=== PATIENT | female | born 1995 | race Hispanic/Latino ===

== ENCOUNTER 2024-06-02 05:39 | Emergency (ER) | payer SELFPAY ==
[2024-06-02 05:44] VITALS: BP 120/77
--- NOTE | 2024-06-02 06:30 | ED.GENMED ---
History of Present Illness
General
Chief Complaint: Weakness
Source: patient
Exam Limitations: none
Time Seen by Provider: 06/02/24 06:22
History of Present Illness
History of Present Illness:
See MDM
Past History
Past History
ED Past Medical History: None
ED Past Surgical History: None
Social History
Tobacco: Non-smoker
Alcohol: None
Phy Exam
Physical Exam
Physical Exam:
See MDM
Course
Orders/Labs/Results
Orders:
Orders
06/02/24 06:28
Electrocardiogram (*1) Urgent
Reason for Study: Fatigue / Weakness
EKG- Treatment ONCE
0.9% Sodium Chloride 1000 ml [Nss] 1,000 ml IV BOLUS
06/02/24 06:29
Test Result ONCE
06/02/24 06:37
Complete Blood Count/With Diff Urgent
Comprehensive Metabolic Panel Urgent
HCG, Serum Qualitative Screen Urgent
Abnormal Lab Results
06/02/24
06:37
Hct 36.9 L %
(37.0-47.0)
Abs Immat Gran (auto) 0.1 H 10^3/uL
(0-0.05)
Immature Gran % 0.6 H %
(0-0.5)
Total Bilirubin 1.6 H mg/dl
(0.2-1.3)
06/02/24 06:37
06/02/24 06:37
Vital Signs
Initial and Last Documented VS:
Initial Vital Signs
Temp Pulse Resp BP Pulse Ox
98.8 F 75 16 120/77 98
06/02/24 05:44 06/02/24 05:44 06/02/24 05:44 06/02/24 05:44 06/02/24 05:44
Last Documented Vital Signs
Temp Pulse Resp BP Pulse Ox
98.8 F 71 20 110/64 99
06/02/24 05:44 06/02/24 06:45 06/02/24 06:45 06/02/24 06:42 06/02/24 06:45
MDM/Problems Addressed
Differential Diagnosis Includes:
HPI and MDM Narrative:
28-year-old female presenting with generalized fatigue and weakness. Patient states symptoms have progressed over the past 3 days. She gets weak and dizzy when she stands up quickly. This is sometimes associated with a headache. She denies
urinary symptoms. She believes that she is drinking of water. She is also concerned that she could be anemic. She denies heavy menstrual cycles.
On exam, she is well-appearing nontoxic. Heart regular rate and rhythm. No leg edema. Mildly dry mucous membranes. Patient symptomatic when seated upright.
Will give IV fluids obtain basic blood work
Physical exam
General: Well appearing and non-toxic
HEENT: protecting airway. Mildly dry mucous membranes
Neck: supple
CV: No evidence of cyanosis. Regular rate and rhythm
Resp: No accessory muscle use
Abd: Non-distended
Extremities: No deformities
Neuro: alert
Psych: Normal affect
Skin: Intact
Problems Addressed including Acute and Chronic Conditions affecting care:
1. Near syncope
Acuity: acute
Prognosis: stable
Details: Likely in setting of orthostasis from hypovolemia. Will give IV fluids and obtain basic blood work in addition to screening EKG
Updates
Blood work without clinical significance. She is not anemic. There is mild elevation in bilirubin but she has no right upper quadrant tenderness
Differential Diagnosis (but not limited to): Orthostasis, anemia
Testing considered: Urinalysis but she denies symptoms
Drug therapy (if applicable): OTC meds, please see d/c instruction regarding Rx drugs
Amount and/or Complexity of Data Reviewed
Clinical info obtained from: Patient
External data reviewed: N/A
Labs I independently reviewed (but not limited to): Hemoglobin
Radiology: N/A
Pulse Ox: not hypoxic
EKG independently reviewed: Sinus rhythm, normal axis, no STEMI
Ethnology Professor: Sinus rhythm
Critical Care: N/A
Risk of Complication:
Social Determinants of health: Good social support
Discussed with other providers: N/A
Escalation of Care includes Admit/Obs: After being observed in the Emergency Department, pt stable for discharge.
Occasional wrong word or 'sound a like' substitutions may have occurred due to the inherent limitations of voice recognition software. Read the chart carefully and recognize, using context, where substitutions have occurred.
*Critical Care Note
Total Time (30-74mins, 75-104mins- exclusive of procedures): Not Applicable
ED Attending Note
-
Portions of this chart may have been created with voice recognition software.� Occasional wrong word or��sound alike� substitutions may have occurred due to the inherent limitations of voice recognition software.
Discharge Plan
Departure
Patient Disposition: Home (Routine Discharge)
Date of Disposition: 06/02/24
Time of Disposition: 07:25
Patient with high blood pressure during this ER visit?: No
Discharge Problem:
Orthostasis
Instructions: Generalized Weakness (DC)
Prescriptions:
No Action
No Current Medications
0
Referrals:
NONE,* [Family Provider] -
Activity Restrictions/Additional Instructions:
Please return for any worsening symptoms.
You may return at any time if you have further concerns.
Please follow up with your doctor at the first available appointment, preferably this week.
Thank you for choosing [facility].
Interventions
Interventions:
*Risk Screen - Suicide Last Done: 06/02/24 05:44
*General Assessment Last Done: 06/02/24 05:44
*Neglect/Abuse Screening Last Done: 06/02/24 05:44
ED- Fall Risk Assessment Last Done: 06/02/24 05:44
*ED COVID-19 Vaccine History Last Done: 06/02/24 05:44
ED- Cardiac Assessment Last Done: 06/02/24 06:38
ED- Neurological Assessment Last Done: 06/02/24 06:38
ED- Pulmonary Assessment Last Done: 06/02/24 06:38
Discharge Date and Time
Print Language: GEORGIAN
[2024-06-02] MEDS: NSS 1000 IV (06:36)
[2024-06-02 06:38] VITALS: BMI 36.5
[2024-06-02 06:42] VITALS: BP 110/64
[2024-06-02 07:00] VITALS: BP 114/72
[2024-06-02 07:05] LABS: % Basophils 0.5 % (0-2); % Eosinophils 1.4 % (0-6); % Immature Granulocytes 0.6 % (0-0.5); % Lymphocytes 22.4 % (20.5-51.1); % Monocytes 6.7 % (1.7-9.3); % Neutrophils 68.4 % (42.2-75.2); Absolute Eosinophils 0.1 10^3/uL (0-0.7); Absolute Immature Granulocytes 0.1 10^3/uL (0-0.05); Absolute Lymphocytes 1.9 10^3/uL (1.2-3.4); Absolute Monocytes 0.6 10^3/uL (0.1-0.6); Absolute Neutrophils 5.9 10^3/uL (1.4-6.5); Hematocrit 36.9 % (37.0-47.0); Hemoglobin 13.2 g/dL (12.0-16.0); Mean Corp Hgb Conc. 35.8 g/dL (33.0-37.0); Mean Corpuscular Hgb 30.6 pg (27.0-31.0); Mean Corpuscular Volume 85.4 fL (81.0-99.0); Mean Platelet Volume 9.7 fL (7.4-10.4); Nucleated Red Blood Cells % 0 %; Platelet Count 263 10^3/uL (130-400); Red Blood Cell Count 4.32 10^6/uL (4.20-5.40); Red Cell Dist. Width 12.9 % (11.5-14.5); White Blood Cell Count 8.7 10^3/uL (4.8-10.8)
[2024-06-02 07:13] LABS: HCG, Serum Qualitative Screen Negative
[2024-06-02 07:16] LABS: ALT (SGPT) 14 U/L (0-35); AST (SGOT) 18 U/L (14-36); Albumin 4.2 g/dl (3.5-5.0); Alkaline Phosphatase 55 U/L (38-126); Blood Urea Nitrogen 16 mg/dl (7-17); Calcium 9.5 mg/dl (8.4-10.2); Carbon Dioxide 27 mmol/L (22-30); Chloride 105 mmol/L (98-107); Estimated Creatinine Clearance > 125 ml/min; Glucose 92 mg/dl (70-99); Potassium 3.9 mmol/L (3.5-5.1); Sodium 138 mmol/L (135-145); Total Bilirubin 1.6 mg/dl (0.2-1.3); Total Protein 6.9 g/dl (6.3-8.2); eGFR > 60.00
[2024-06-02 07:52] VITALS: BP 114/72
== END 2024-06-02 07:52 | disposition home or self-care (01) ==
LOC: EMR 05:39
PROVIDERS: EMERGENCY PHYSICIAN Student in an Organized Health Care Education/Training Program
DX: I95.1 Orthostatic hypotension (principal)
CPT/HCPCS: 99284; 96360; 80053; 84703; 85025; 93005

== ENCOUNTER 2025-03-20 09:38 | Emergency (ER) | payer OTHER, SELFPAY ==
[2025-03-20 09:55] VITALS: BP 120/75
[2025-03-20 10:22] LABS: % Basophils 0.4 % (0-2); % Eosinophils 1.4 % (0-6); % Immature Granulocytes 0.6 % (0-0.5); % Monocytes 5.8 % (1.7-9.3); % Neutrophils 77.8 % (42.2-75.2); Absolute Eosinophils 0.2 10^3/uL (0-0.7); Absolute Immature Granulocytes 0.1 10^3/uL (0-0.05); Absolute Lymphocytes 1.5 10^3/uL (1.2-3.4); Absolute Monocytes 0.6 10^3/uL (0.1-0.6); Absolute Neutrophils 8.4 10^3/uL (1.4-6.5); Hematocrit 41.3 % (37.0-47.0); Hemoglobin 14.2 g/dL (12.0-16.0); Mean Corp Hgb Conc. 34.4 g/dL (33.0-37.0); Mean Corpuscular Hgb 30.3 pg (27.0-31.0); Mean Corpuscular Volume 88.1 fL (81.0-99.0); Mean Platelet Volume 9.6 fL (7.4-10.4); Nucleated Red Blood Cells % 0 %; Platelet Count 263 10^3/uL (130-400); Red Blood Cell Count 4.69 10^6/uL (4.20-5.40); Red Cell Dist. Width 13.2 % (11.5-14.5); White Blood Cell Count 10.8 10^3/uL (4.8-10.8)
[2025-03-20 10:33] LABS: Urine Albumin Negative (Neg - Trace); Urine Bilirubin Negative (Negative); Urine Character Slightly Cloudy (Clear); Urine Color Yellow; Urine Glucose Negative (Negative); Urine Ketone Negative (Negative); Urine Leukocyte Negative (Negative); Urine Nitrite Negative (Negative); Urine Occult Blood Negative (Negative); Urine Specific Gravity 1.005 (<1.030); Urine Urobilinogen Negative (Neg - 1+)
[2025-03-20 10:35] LABS: ALT (SGPT) 23 U/L (0-35); AST (SGOT) 22 U/L (14-36); Albumin 4.5 g/dl (3.5-5.0); Alkaline Phosphatase 48 U/L (38-126); Blood Urea Nitrogen 10 mg/dl (7-17); Calcium 9.5 mg/dl (8.4-10.2); Carbon Dioxide 21 mmol/L (22-30); Chloride 106 mmol/L (98-107); Glucose 96 mg/dl (70-99); Potassium 3.9 mmol/L (3.5-5.1); Sodium 140 mmol/L (135-145); Total Protein 7.4 g/dl (6.3-8.2); eGFR > 60.00
--- NOTE | 2025-03-20 11:28 | ED.GENMED ---
History of Present Illness
General
Chief Complaint: Abdominal Symptoms
Source: patient
Time Seen by Provider: 03/20/25 11:17
History of Present Illness
History of Present Illness:
29-year-old female (G2, P0, 1 spontaneous miscarriage) presenting to the emergency department for evaluation of lower abdominal cramping and back discomfort for the last few days, has had small clear white discharge but no vaginal bleeding, states
having a hard time getting comfortable so decided to come to the ER for further evaluation. Has not been seen by her MANAGER SIGN for this but does have an appointment scheduled for April 11. Last menstrual period February 10. Denies any fevers,
chills, rigors, urinary symptoms or bowel changes. Currently taking vitamins but no other medications.
Past History
Past History
ED Past Medical History: None
ED Past Surgical History: None
Social History
Tobacco: Non-smoker
Alcohol: None
Drug: None
Personal: Single
Living: with family
Review of Systems
Review of Systems
All Other Systems: ROS reviewed and negative except as documented in HPI and ROS
Phy Exam
Physical Exam
Physical Exam:
GENERAL: Alert , in no apparent distress
EYE: clear conjunctiva b/l
HEAD: NCAT
ENT: o/p clr, mmm.
ABDOMEN: Soft, without focal tenderness, no r/g, no cvat
NEUROLOGICAL: Alert and oriented
SKIN: Warm and dry, skin intact.
MUSCULOSKELETAL: well perfused.
PSYCH: Normal and appropriate interaction.
Scores
Heart Failure Risk
Heart Failure Risk Score: Not Applicable
Heart Score for Chest Pain Patients
STEMI patient?: Not applicable
Withdrawal Assessment of Alcohol
Withdrawal Assessment Completed?: Not applicable
Course
Orders/Labs/Results
Orders:
Orders
03/20/25 10:09
Type+Screen Urgent
Beta HCG Quantitative Urgent
Is this a screen?: No
Complete Blood Count/With Diff Urgent
Comprehensive Metabolic Panel Urgent
Urinalysis Reflex To Culture Urgent
Date Specimen was Collected: 03/20/25
Time Specimen was Collected: 09:59
03/20/25 11:22
US W Transvaginal Stat
Reason For Exam: preg, lower abd pain
Abnormal Lab Results
03/20/25
10:09
Abs Immat Gran (auto) 0.1 H 10^3/uL
(0-0.05)
Absolute Neuts (auto) 8.4 H 10^3/uL
(1.4-6.5)
Immature Gran % 0.6 H %
(0-0.5)
Neutrophils % 77.8 H %
(42.2-75.2)
Lymphocytes % 14.0 L %
(20.5-51.1)
Carbon Dioxide 21 L mmol/L
(22-30)
03/20/25 10:09
03/20/25 10:09
Vital Signs
Initial and Last Documented VS:
Initial Vital Signs
Temp Pulse Resp BP Pulse Ox
98.3 F 85 16 120/75 98
03/20/25 09:55 03/20/25 09:55 03/20/25 09:55 03/20/25 09:55 03/20/25 09:55
Last Documented Vital Signs
Temp Pulse Resp BP Pulse Ox
98.3 F 85 16 120/75 98
03/20/25 09:55 03/20/25 09:55 03/20/25 09:55 03/20/25 09:55 03/20/25 12:06
MDM/Problems Addressed
Differential Diagnosis Includes:
Early symptoms, ectopic , urinary tract infection
MDM/Problems Addressed:
29-year-old female presenting to the ER for evaluation of lower abdominal cramping and back discomfort for the last few days. Based off of last menstrual period estimated to be about 5 weeks . History of miscarriage. No current
care thus far but does have an appointment scheduled for end of March. Labs initiated in triage are reassuring, hCG of just under 7500. Will check ultrasound. Disposition pending.
*Radiology
Radiology exam reviewed: radiology read reviewed
*Pulse Oximetry
Patient hypoxic: no
*Critical Care Note
Total Time (30-74mins, 75-104mins- exclusive of procedures): Not Applicable
Patient Management
Escalation/DeEscalation of care consider admission/obs:
Patient's ultrasound shows the following:
IMPRESSION: Intrauterine gestational sac is present, with mean sac diameter corresponding to an estimated gestational age of 5 weeks and 3 days, +/- 1 week.
No embryo or heartbeat is yet visualized.
Small complex cyst within the maternal right ovary, which is likely the corpus luteum. Normal appearance of the maternal left ovary.
Findings likely represent early intrauterine , consideration for follow-up ultrasound as desired.
Patient's MANAGER SIGN at separate facility so I did provide her with the ultrasound report. Discussed return precautions to the emergency department. Advised patient contact her MANAGER SIGN to see if they would like to follow-up with her sooner. Stable for
discharge home.
ED Attending Note
-
Portions of this chart may have been created with voice recognition software.� Occasional wrong word or��sound alike� substitutions may have occurred due to the inherent limitations of voice recognition software.
Discharge Plan
Departure
Patient Disposition: Home (Routine Discharge)
Date of Disposition: 03/20/25
Time of Disposition: 12:45
Patient with high blood pressure during this ER visit?: No
Discharge Problem:
First trimester
Instructions: - The Second Month
Prescriptions:
No Action
No Current Medications
0
Referrals:
NONE,* [Family Provider] -
Stand Alone Forms: Return to Work
Interventions
Interventions:
*Risk Screen - Suicide Last Done: 03/20/25 09:58
*General Assessment Last Done: 03/20/25 11:38
*Neglect/Abuse Screening Last Done: 03/20/25 09:58
*ED- Fall Risk Assessment Last Done: 03/20/25 11:38
*ED COVID-19 Vaccine History Last Done: 03/20/25 11:38
*Nursing Disposition Last Done: 03/20/25 13:28
VB-Gglood-Rnibkugioq Assessment Last Done: 03/20/25 11:38
Discharge Date and Time
Discharge Date/Time: 03/20/25 13:15
Print Language: CROATIAN
[2025-03-20 11:38] VITALS: BMI 35.1
== END 2025-03-20 13:15 | disposition home or self-care (01) ==
LOC: EMR 09:38
PROVIDERS: Student in an Organized Health Care Education/Training Program; EMERGENCY PHYSICIAN Student in an Organized Health Care Education/Training Program
DX: O26.891 Other specified pregnancy related conditions, first trimester (principal); R10.30 Lower abdominal pain, unspecified; Z3A.01 Less than 8 weeks gestation of pregnancy
CPT/HCPCS: 99284; 76801; 76817; 80053; 81003; 84702; 85025; 86850; 86900; 86901

== ENCOUNTER → 2025-05-09 10:53 | Outpatient (REF) | payer OTHER, SELFPAY | LOC: PNTC 10:53 | PROVIDERS: ATTENDING PHYSICIAN Obstetrics & Gynecology | DX: Z36.0 Encounter for antenatal screening for chromosomal anomalies (principal); Z36.82 Encounter for antenatal screening for nuchal translucency | CPT/HCPCS: 76801; 76813 ==

== ENCOUNTER → 2025-06-12 14:04 | Outpatient (REF) | payer OTHER, SELFPAY | LOC: PNTC 14:04 | PROVIDERS: ATTENDING PHYSICIAN Student in an Organized Health Care Education/Training Program | DX: O99.210 Obesity complicating pregnancy, unspecified trimester (principal) | CPT/HCPCS: 76805 ==

== ENCOUNTER → 2025-07-11 06:52 | Outpatient (REF) | payer OTHER, SELFPAY | LOC: PNTC 06:52 | PROVIDERS: ATTENDING PHYSICIAN Student in an Organized Health Care Education/Training Program | DX: O99.210 Obesity complicating pregnancy, unspecified trimester (principal) | CPT/HCPCS: 76811; 76817 ==

== ENCOUNTER 2025-07-20 16:05 | Emergency (ER) | payer OTHER, SELFPAY ==
[2025-07-20 16:10] VITALS: BP 132/74
[2025-07-20 17:41] VITALS: BP 121/68
[2025-07-20 17:59] VITALS: BMI 40.4
[2025-07-20] MEDS: TYLENOL 650 MG PO (18:02)
[2025-07-20 18:04] VITALS: BP 121/66
[2025-07-20 18:10] LABS: Hematocrit 33.6 % (37.0-47.0); Hemoglobin 11.5 g/dL (12.0-16.0); Mean Corp Hgb Conc. 34.2 g/dL (33.0-37.0); Mean Corpuscular Volume 86.6 fL (81.0-99.0); Nucleated Red Blood Cells % 0 %; Platelet Count 239 10^3/uL (130-400); Red Cell Dist. Width 13.5 % (11.5-14.5)
[2025-07-20 18:19] LABS: D-Dimer 0.95 ug/mlFEU (0.00-0.50)
[2025-07-20 18:22] LABS: ALT (SGPT) 20 U/L (0-35); AST (SGOT) 25 U/L (14-36); Albumin 3.6 g/dl (3.5-5.0); Alkaline Phosphatase 68 U/L (38-126); Blood Urea Nitrogen 7 mg/dl (7-17); Calcium 9.4 mg/dl (8.4-10.2); Carbon Dioxide 25 mmol/L (22-30); Chloride 107 mmol/L (98-107); Estimated Creatinine Clearance > 125 ml/min; Glucose 106 mg/dl (70-99); Magnesium 1.8 mg/dl (1.6-2.3); Potassium 3.8 mmol/L (3.5-5.1); Sodium 134 mmol/L (135-145); Total Protein 6.5 g/dl (6.3-8.2); eGFR > 60.00
[2025-07-20 18:34] LABS: Troponin I < 0.012 ng/ml
--- NOTE | 2025-07-20 18:55 | ED.GENMED ---
History of Present Illness
General
Chief Complaint: Chest Pain
Source: patient
Exam Limitations: none
Time Seen by Provider: 07/20/25 17:34
Nursing documentation reviewed up to this point in time: agreed with
History of Present Illness
History of Present Illness:
29-year-old female 22 to 23 weeks sharp left anterior chest pain mild shortness of breath onset this morning no fever chills no cough, no leg edema she is very active at her job, no history of DVT PE, no fevers, heavy vaginal bleeding no
abdominal pain no pelvic pain feeling the baby move tells me she is having a baby girl
Past History
Past History
ED Past Medical History: None
ED Past Surgical History: None
Social History
Tobacco: Non-smoker
Alcohol: None
Drug: None
Personal: Single
Living: with family
Employment: Employed
Review of Systems
Review of Systems
All Other Systems: Not applicable
Constitutional: Denies fever or fatigue
EENT: Reports no symptoms
Respiratory: Reports trouble breathing
Cardiac: Reports chest pain; Denies diaphoresis or palpitations
ABD/GI: Reports no symptoms
: Reports no symptoms
Musculoskeletal: Reports no symptoms
Skin: Reports no symptoms
Neurological: Reports no symptoms
Endocrine: Reports no symptoms
Hematologic/Lymphatic: Reports no symptoms
Phy Exam
Physical Exam
Physical Exam:
Physical Exam
General: no apparent distress, not acutely ill
Neck: No jaundice
Heart: s1/s2 regular rate and rhythm, no murmur. equal radial pulses.
Lungs: no acute respiratory distress. clear bilaterally
Abdomen: Soft gravid above the umbilicus nontender
Neuro: alert and oriented. no focal neurological deficits
Skin: no rash
Psychiatric: well kept. interactive and cooperative
Extremities: no edema. no calf tenderness.
Scores
Heart Score for Chest Pain Patients
STEMI patient?: No
History: Slightly or Non-Suspicious
ECG: Normal
Age: </= 45 years
Risk Factors: No Risk Factors
Troponin: </= Normal Limit
Heart Score for Chest Pain Patients: 0
Heart Score Risk: 2.5% MACE over next 6 weeks
Course
Orders/Labs/Results
Orders:
Orders
07/20/25 16:07
Electrocardiogram (*1) Urgent
Reason for Study: Chest Pain
EKG- Treatment ONCE
07/20/25 17:48
Acetaminophen [Tylenol] 650 mg PO NOW STA
US Perip Venous LOWER Ext Danie Urgent
Comment:
Reason For Exam: chest pain, 23 weeks pregant
07/20/25 18:00
Complete Blood Count/With Diff Urgent
Comprehensive Metabolic Panel Urgent
D-Dimer Urgent
Magnesium Urgent
Troponin I Urgent
Abnormal Lab Results
07/20/25
18:00
WBC 15.3 H 10^3/uL
(4.8-10.8)
RBC 3.88 L 10^6/uL
(4.20-5.40)
Hgb 11.5 L g/dL
(12.0-16.0)
Hct 33.6 L %
(37.0-47.0)
Abs Immat Gran (auto) 0.2 H 10^3/uL
(0-0.05)
Absolute Neuts (auto) 11.7 H 10^3/uL
(1.4-6.5)
Absolute Monos (auto) 1.0 H 10^3/uL
(0.1-0.6)
Immature Gran % 1.3 H %
(0-0.5)
Neutrophils % 76.4 H %
(42.2-75.2)
Lymphocytes % 13.8 L %
(20.5-51.1)
D-Dimer 0.95 H ug/mlFEU
(0.00-0.50)
Sodium 134 L mmol/L
(135-145)
Creatinine 0.4 L mg/dL
(0.6-1.0)
Glucose 106 H mg/dl
(70-99)
07/20/25 18:00
07/20/25 18:00
Vital Signs
Initial and Last Documented VS:
Initial Vital Signs
Temp Pulse Resp BP Pulse Ox
98.3 F 105 16 132/74 98
07/20/25 16:10 07/20/25 16:10 07/20/25 16:10 07/20/25 16:10 07/20/25 16:10
Last Documented Vital Signs
Temp Pulse Resp BP Pulse Ox
98.3 F 91 21 116/64 97
07/20/25 16:10 07/20/25 19:33 07/20/25 19:33 07/20/25 19:00 07/20/25 19:00
MDM/Problems Addressed
Differential Diagnosis Includes:
Noncardiac chest pain PE costochondritis doubt ACS or pneumothorax
MDM/Problems Addressed:
Chest pain
Chronic conditions affecting care:
Chest pain
Acute Exacerbation and/or Progression of Chronic Illness:
*Radiology
Radiology exam reviewed: radiology read reviewed
*Pulse Oximetry
SaO2: 99
Oxygen Mode of Delivery: Room air
Patient hypoxic: no
*EKG
Interpreted by ED Provider?: Yes
Interpretation: normal
Heart Rate: 95
Rate: normal
Rhythm: sinus
[place]: normal axis
Ischemia: no ischemia
*Computer Installation Engineer Interpretation
Rate: normal
Interpretation: normal
Heart Rate: 85
Rhythm: sinus
*Critical Care Note
Total Time (30-74mins, 75-104mins- exclusive of procedures): Not Applicable
Update Note
Update Note:
Update-troponin noted EKG noted D-dimer noted can be elevated up to 1.6 in second trimester Doppler has been ordered of her legs
8:08 PM ultrasound report noted patient states she is feeling better, heart rate is down into the mid 80s, reviewed her workup thus far, reviewed D-dimer with the patient, potential for it to be elevated in also with PE, I did discuss the
risk of radiation in with the patient, shared decision making, we will hold off on CT angiogram, give her off work tomorrow, clear instructed to return to the ER if worsening symptoms
ED Attending Note
-
Portions of this chart may have been created with voice recognition software.� Occasional wrong word or��sound alike� substitutions may have occurred due to the inherent limitations of voice recognition software.
Discharge Plan
Departure
Patient Disposition: Home (Routine Discharge)
Date of Disposition: 07/20/25
Time of Disposition: 20:13
Patient with high blood pressure during this ER visit?: No
Condition: Good
Discharge Problem:
Chest pain
Instructions: Chest Pain PCP Follow Up
Prescriptions:
No Action
No Current Medications
0
Referrals:
NONE,* [Family Provider, Internal Medicine]
Activity Restrictions/Additional Instructions:
Drink plenty of fluid
Tylenol as needed for pain
Return to the ER if worsening symptoms or any other concerns
Interventions
Interventions:
*Risk Screen - Suicide Last Done: 07/20/25 16:12
*General Assessment Last Done: 07/20/25 18:06
*Neglect/Abuse Screening Last Done: 07/20/25 16:12
*ED- Fall Risk Assessment Last Done: 07/20/25 18:06
*ED COVID-19 Vaccine History Last Done: 07/20/25 18:06
ED- Cardiac Assessment Last Done: 07/20/25 18:07
Discharge Date and Time
Print Language: ARMENIAN
[2025-07-20 19:00] VITALS: BP 116/64
[2025-07-20 20:00] VITALS: BP 117/71
== END 2025-07-20 20:32 | disposition home or self-care (01) ==
LOC: EMR 16:05
PROVIDERS: EMERGENCY PHYSICIAN Emergency Medicine
DX: O99.412 Diseases of the circulatory system complicating pregnancy, second trimester (principal); R07.9 Chest pain, unspecified; Z3A.23 23 weeks gestation of pregnancy
CPT/HCPCS: 99284; 80053; 83735; 84484; 85025; 85379; 93005; 93970

== ENCOUNTER 2025-07-26 15:31 | Emergency (ER) | payer OTHER, SELFPAY ==
[2025-07-26 15:32] VITALS: BMI 39.9
[2025-07-26 15:33] VITALS: BP 123/66
[2025-07-26 16:19] VITALS: BP 110/63
[2025-07-26 16:30] VITALS: BP 103/73
--- NOTE | 2025-07-26 16:56 | ED.GENMED ---
History of Present Illness
General
Chief Complaint: Cardiac Symptoms
Source: patient
Exam Limitations: none
Time Seen by Provider: 07/26/25 15:46
Nursing documentation reviewed up to this point in time: agreed with
History of Present Illness
History of Present Illness:
Note:
CHIEF COMPLAINT(S)
Chest pain and shoulder pain.
HISTORY OF PRESENT ILLNESS
The patient is a 29-year-old female who presented with a chief complaint of chest pain and shoulder pain. She reports that the shoulder pain began this morning, while the chest pain has been present for about a week. The chest pain is described as a
vague discomfort and is located in the chest. The patient states, 'it hurts a little bit when I breathe in here,' indicating some discomfort with inspiration. An electrocardiogram (EKG) was discussed as a screening tool to rule out serious concerns
such as a blood clot or heart attack, although the exam findings were more consistent with a musculoskeletal origin. The patient is currently , and this is her second following a miscarriage two years ago at five weeks of gestation.
SOCIAL DETERMINANTS AFFECTING HEALTH
The patient has reported financial hardship due to job loss.
MEDICATIONS
The patient denies taking any medications currently.
REVIEW OF SYSTEMS
- Cardiovascular: Reports chest pain over the past week.
- Musculoskeletal: Shoulder pain starting this morning.
PHYSICAL EXAM
General: Alert, no acute distress.
Skin: Warm, dry.
Head: Normocephalic, atraumatic.
Neck: Supple, trachea midline.
Eyes, Ears, Nose, Mouth, and Throat: Oral mucosa moist.
Cardiovascular: Normal peripheral perfusion, No edema.
Respiratory: Respirations are non-labored. chest wall tender to palpation
Gastrointestinal: Abdomen nondistended.
Back: Normal range of motion, Normal alignment.
Musculoskeletal: Normal ROM, normal strength.
Neurological: Alert and oriented to person, place, time, and situation, No focal neurological deficit observed.
Psychiatric: Cooperative, appropriate mood & affect.
PLAN
Further evaluation of chest and shoulder pain, likely musculoskeletal in nature. Consider additional follow-up or diagnostics if symptoms persist or worsen.
DIFFERENTIAL DIAGNOSIS
The Differential Diagnosis includes, in no particular order and is not limited to:
1. Musculoskeletal chest pain
2. Costochondritis
3. Gastroesophageal reflux disease (GERD)
4. Anxiety-related chest pain
5. Pulmonary embolism
6. Pneumothorax
7. Cardiac ischemia
8. Pleuritic chest pain
9. Pneumonia
10. Pericarditis
CARE-UPDATE
07/26/25 - 17:02
Follow-up examination confirmed the absence of respiratory distress, and no additional signs suggestive of pulmonary embolism or acute coronary syndrome were noted. The patients chest wall pain is likely musculoskeletal, with reassurance given. She
was advised to continue monitoring symptoms and follow up with her OB-TECHNICIAN TERMINAL AND REPEATER for ongoing evaluation. Tylenol is recommended for pain management as needed. The patient is stable for discharge.
EKG
My independent EKG interpretation is:
- Time of EKG: Not specified
- Rhythm: Normal sinus rhythm
- Heart Rate: 85 bpm
- [place] Interval: Normal
- QRS Duration: Normal
- QT Interval: Normal
- [place]: Normal
- Abnormalities Observed: None noted except mention of possible ischemia, though unclear from the integrated logistics operations manager provided.
Disposition:
SUMMARY OF ENCOUNTER
The patient, a 29-year-old female, presented to the emergency department with chest pain and shoulder pain. The chest pain has persisted for about a week, described as discomfort, especially with inspiration. Given the patients history, an
electrocardiogram (EKG) was performed to rule out serious conditions like a pulmonary embolism or myocardial ischemia, but findings were suggestive of a musculoskeletal origin. Given the patients and recent miscarriage history, the
clinical decision leaned towards conservative management with reassurance.
DISPOSITION
Discharge.
ASSESSMENT
The patients symptoms are likely of musculoskeletal origin, considering her pain presentation and the EKG results. There is no evidence of acute cardiopulmonary conditions such as pulmonary embolism or myocardial ischemia.
PLAN
- Monitor symptoms.
- Take acetaminophen (Tylenol) for pain management as needed.
- Follow up with OB-TECHNICIAN TERMINAL AND REPEATER for ongoing evaluation of and any related discomforts.
INDEPENDENT REVIEW OF LABS AND INTERPRETATION OF TESTS
My independent EKG interpretation is:
- Rhythm: Normal sinus rhythm
- Heart Rate: 85 bpm
- No significant abnormalities, possible ischemia noted but unclear.
PATIENT EDUCATION AND COUNSELING
The patient was advised that the chest pain is likely musculoskeletal and symptomatic relief can be achieved with acetaminophen. She was counseled on recognizing any new or worsening symptoms and the importance of follow-up care with her OB-TECHNICIAN TERMINAL AND REPEATER.
FOLLOW-UP INSTRUCTIONS
The patient should follow up with her OB-TECHNICIAN TERMINAL AND REPEATER for ongoing evaluation due to and continue monitoring her symptoms.
MEDICATION RECONCILIATION
- Acetaminophen (Tylenol) recommended for pain management as needed.
MEDICAL DECISION MAKING
- Number and Complexity of Problems Addressed: Chronic conditions affecting care, including musculoskeletal pain and with a history of miscarriage. Differential Diagnosis includes: Musculoskeletal chest pain, Costochondritis,
Gastroesophageal reflux disease (GERD), Anxiety-related chest pain, Pulmonary embolism, Pneumothorax, Cardiac ischemia, Pleuritic chest pain, Pneumonia, Pericarditis.
- Data:
Category 1
My independent interpretation of the EKG was noted, screening out serious cardiopulmonary conditions.
- Risk:
Care significantly affected by Social Determinants of Health: Financial hardship due to job loss.
DIAGNOSIS
- Musculoskeletal chest pain (ICD-10: R07.89)
- with a history of previous miscarriage (ICD-10: O34.3)
Past History
Past History
ED Past Medical History: None
ED Past Surgical History: None
Social History
Tobacco: Non-smoker
Alcohol: None
Drug: None
Personal: Single
Living: with family
Employment: Employed
Phy Exam
Physical Exam
Physical Exam:
.
Course
Orders/Labs/Results
Orders:
Orders
07/26/25 15:32
EKG [Electrocardiogram (*1)] Urgent
Reason for Study: Chest Pain
07/26/25 15:33
EKG- Treatment ONCE
Vital Signs
Initial and Last Documented VS:
Initial Vital Signs
Temp Pulse Resp BP Pulse Ox
98.0 F 99 20 123/66 99
07/26/25 15:33 07/26/25 15:33 07/26/25 15:33 07/26/25 15:33 07/26/25 15:33
Last Documented Vital Signs
Temp Pulse Resp BP Pulse Ox
98.0 F 99 16 123/66 97
07/26/25 15:33 07/26/25 15:33 07/26/25 16:00 07/26/25 15:33 07/26/25 16:19
*Pulse Oximetry
SaO2: 97
Oxygen Mode of Delivery: Room air
Patient hypoxic: no
*Critical Care Note
Total Time (30-74mins, 75-104mins- exclusive of procedures): Not Applicable
ED Attending Note
-
Portions of this chart may have been created with voice recognition software.� Occasional wrong word or��sound alike� substitutions may have occurred due to the inherent limitations of voice recognition software.
Discharge Plan
Departure
Patient Disposition: Home (Routine Discharge)
Date of Disposition: 07/26/25
Time of Disposition: 16:57
Patient with high blood pressure during this ER visit?: Yes
Condition: Good
Discharge Problem:
Acute chest wall pain
Instructions: Costochondritis, BLOOD PRESSURE
Prescriptions:
No Action
No Current Medications
0
Referrals:
[facility] [Other] - Call in 1-3 days for appt
Sneha Peng DO [Active, Gynecology] - Call in 1-3 days for appt
NONE,* [Family Provider, Internal Medicine]
Stand Alone Forms: Return to Work
Interventions
Interventions:
*Risk Screen - Suicide Last Done: 07/26/25 16:12
*General Assessment Last Done: 07/26/25 15:33
*Neglect/Abuse Screening Last Done: 07/26/25 16:12
*ED- Fall Risk Assessment Last Done: 07/26/25 16:12
ED- Cardiac Assessment Last Done: 07/26/25 16:12
ED- Pulmonary Assessment Last Done: 07/26/25 16:12
Discharge Date and Time
Print Language: AZERI
== END 2025-07-26 17:05 | disposition home or self-care (01) ==
LOC: EMR 15:31
PROVIDERS: EMERGENCY PHYSICIAN Emergency Medicine
DX: O26.891 Other specified pregnancy related conditions, first trimester (principal); R07.89 Other chest pain; R03.0 Elevated blood-pressure reading, without diagnosis of hypertension; Z3A.01 Less than 8 weeks gestation of pregnancy
CPT/HCPCS: 99283; 93005

== ENCOUNTER → 2025-08-22 07:01 | Outpatient (REF) | payer OTHER, SELFPAY | LOC: PNTC 07:01 | PROVIDERS: ATTENDING PHYSICIAN Obstetrics & Gynecology | DX: O09.529 Supervision of elderly multigravida, unspecified trimester (principal) | CPT/HCPCS: 76816 ==

== ENCOUNTER → 2025-09-01 14:57 | Outpatient (REF) | payer OTHER, SELFPAY | LOC: RCS 14:57 | PROVIDERS: ATTENDING PHYSICIAN Internal Medicine Cardiovascular Disease | DX: R07.89 Other chest pain (principal) | CPT/HCPCS: 93306 ==

== ENCOUNTER 2025-09-07 08:13 | Observation (INO) | payer OTHER, SELFPAY ==
[2025-09-07 08:45] VITALS: BP 123/68; BMI 41.2
[2025-09-07] MEDS: LR 1000 IV (09:25)
[2025-09-07 09:36] LABS: Hematocrit 36.8 % (37.0-47.0); Hemoglobin 12.4 g/dL (12.0-16.0); Mean Corp Hgb Conc. 33.7 g/dL (33.0-37.0); Mean Corpuscular Volume 89.8 fL (81.0-99.0); Nucleated Red Blood Cells % 0 %; Platelet Count 253 10^3/uL (130-400); Red Cell Dist. Width 13.8 % (11.5-14.5)
[2025-09-07 09:50] LABS: Urine Character Clear (Clear)
[2025-09-07 09:51] LABS: ALT (SGPT) 13 U/L (0-35); AST (SGOT) 19 U/L (14-36); Albumin 3.6 g/dl (3.5-5.0); Alkaline Phosphatase 106 U/L (38-126); Blood Urea Nitrogen 4 mg/dl (7-17); Calcium 9.1 mg/dl (8.4-10.2); Carbon Dioxide 20 mmol/L (22-30); Chloride 109 mmol/L (98-107); Estimated Creatinine Clearance > 125 ml/min; Glucose 83 mg/dl (70-99); Potassium 3.9 mmol/L (3.5-5.1); Sodium 134 mmol/L (135-145); Total Protein 6.9 g/dl (6.3-8.2); eGFR > 60.00
--- NOTE | 2025-09-07 10:39 | CM ---
Pt admitted with abdominal pain and hemorrhage at 30 weeks. She is cleared for discharge to home today and will be driving herself.
CM contacted by [facility] requesting information about the [facility] Maternal Child Health program and also requesting a food bag for discharge.
Pt was provided with information about the Maternal Child Health program and was very happy about the food bag.
== END 2025-09-07 10:55 | disposition home or self-care (01) ==
LOC: LDRP 08:13
PROVIDERS: ADMITTING PHYSICIAN Obstetrics & Gynecology
DX: O26.893 Other specified pregnancy related conditions, third trimester (principal); R10.9 Unspecified abdominal pain; Z3A.29 29 weeks gestation of pregnancy
CPT/HCPCS: 59025; 80053; 81003; 85025; 86850; 86900; 86901; 87086; G0378

== ENCOUNTER → 2025-10-05 07:01 | Outpatient (REF) | payer OTHER, SELFPAY | LOC: PNTC 07:01 | PROVIDERS: ATTENDING PHYSICIAN Obstetrics & Gynecology | DX: O99.213 Obesity complicating pregnancy, third trimester (principal); E66.9 Obesity, unspecified; O36.63X0 Maternal care for excessive fetal growth, third trimester, not applicable or unspecified | CPT/HCPCS: 59025; 76816 ==

== ENCOUNTER → 2025-10-11 13:51 | Outpatient (REF) | payer OTHER, SELFPAY | LOC: PNTC 13:51 | PROVIDERS: ATTENDING PHYSICIAN Obstetrics & Gynecology | DX: O99.213 Obesity complicating pregnancy, third trimester (principal); E66.9 Obesity, unspecified; O36.63X0 Maternal care for excessive fetal growth, third trimester, not applicable or unspecified | CPT/HCPCS: 59025; 76815 ==

== ENCOUNTER 2025-10-17 15:23 | Observation (INO) | payer OTHER, SELFPAY ==
[2025-10-17 16:11] LABS: Hematocrit 35.6 % (37.0-47.0); Hemoglobin 12.5 g/dL (12.0-16.0); Mean Corp Hgb Conc. 35.1 g/dL (33.0-37.0); Mean Corpuscular Volume 87.0 fL (81.0-99.0); Platelet Count 253 10^3/uL (130-400); Red Cell Dist. Width 14.5 % (11.5-14.5)
[2025-10-17 16:17] LABS: ALT (SGPT) 13 U/L (0-35); AST (SGOT) 20 U/L (14-36); Albumin 3.3 g/dl (3.5-5.0); Alkaline Phosphatase 154 U/L (38-126); Blood Urea Nitrogen 9 mg/dl (7-17); Calcium 8.9 mg/dl (8.4-10.2); Carbon Dioxide 22 mmol/L (22-30); Chloride 108 mmol/L (98-107); Glucose 115 mg/dl (70-99); Potassium 4.1 mmol/L (3.5-5.1); Sodium 135 mmol/L (135-145); Total Protein 6.5 g/dl (6.3-8.2); eGFR > 60.00
[2025-10-17 16:27] VITALS: BP 132/75; BMI 43.8
[2025-10-17 16:34] LABS: Urine Character Clear (Clear)
[2025-10-17 16:41] LABS: Urine Squamous Cell >30 /LPF (Few)
== END 2025-10-17 17:40 | disposition home or self-care (01) ==
LOC: PNTC-IN 15:23
PROVIDERS: ADMITTING PHYSICIAN Obstetrics & Gynecology
DX: O26.893 Other specified pregnancy related conditions, third trimester (principal); R51.9 Headache, unspecified; H53.8 Other visual disturbances; Z3A.35 35 weeks gestation of pregnancy
CPT/HCPCS: 80053; 81003; 81015; 82570; 84156; 85027; G0378

== ENCOUNTER → 2025-10-19 08:21 | Outpatient (REF) | payer OTHER, SELFPAY | LOC: PNTC 08:21 | PROVIDERS: ATTENDING PHYSICIAN Obstetrics & Gynecology | DX: O99.213 Obesity complicating pregnancy, third trimester (principal); E66.9 Obesity, unspecified; O36.63X0 Maternal care for excessive fetal growth, third trimester, not applicable or unspecified | CPT/HCPCS: 59025; 76815 ==

== ENCOUNTER → 2025-10-26 07:04 | Outpatient (REF) | payer OTHER, SELFPAY | LOC: PNTC 07:04 | PROVIDERS: ATTENDING PHYSICIAN Obstetrics & Gynecology | DX: O99.213 Obesity complicating pregnancy, third trimester (principal); E66.9 Obesity, unspecified; O36.63X0 Maternal care for excessive fetal growth, third trimester, not applicable or unspecified | CPT/HCPCS: 59025; 76816 ==

== ENCOUNTER 2025-10-31 20:04 | Inpatient (IN) | payer OTHER, SELFPAY ==
[2025-10-31 20:09] VITALS: BP 167/91; BMI 45.0
[2025-10-31] MEDS: LR 1000 IV (20:47)
[2025-10-31 20:50] LABS: Hematocrit 35.9 % (37.0-47.0); Hemoglobin 12.6 g/dL (12.0-16.0); Mean Corp Hgb Conc. 35.1 g/dL (33.0-37.0); Mean Corpuscular Volume 85.9 fL (81.0-99.0); Nucleated Red Blood Cells % 0 %; Platelet Count 254 10^3/uL (130-400); Red Cell Dist. Width 14.2 % (11.5-14.5)
[2025-10-31 21:08] LABS: ALT (SGPT) 15 U/L (0-35); AST (SGOT) 23 U/L (14-36); Albumin 3.5 g/dl (3.5-5.0); Alkaline Phosphatase 176 U/L (38-126); Blood Urea Nitrogen 10 mg/dl (7-17); Calcium 9.7 mg/dl (8.4-10.2); Carbon Dioxide 20 mmol/L (22-30); Chloride 105 mmol/L (98-107); Estimated Creatinine Clearance > 125 ml/min; Glucose 108 mg/dl (70-99); Potassium 3.9 mmol/L (3.5-5.1); Sodium 132 mmol/L (135-145); Total Protein 6.6 g/dl (6.3-8.2); eGFR > 60.00
[2025-10-31] MEDS: PITOCIN 30 UNITS/NSS 500 ML IV (23:16)
[2025-11-01] MEDS: LR 1000 IV ×2 (05:04→21:53)
[2025-11-01] MEDS: STADOL 1 MG IV (08:42)
[2025-11-01] MEDS: FENTANYL/BUPIVACAINE 100 EPIDURAL ×2 (10:44→20:12)
[2025-11-01] MEDS: SUBLIMAZE 100 MCG EPIDURAL (10:44)
[2025-11-01] MEDS: TYLENOL 500 MG PO (14:32)
[2025-11-01] MEDS: TRANEXAMIC ACID 100 IV (23:35)
[2025-11-01] MEDS: PITOCIN 30 UNITS/NSS 500 ML IV (23:40)
[2025-11-01] MEDS: XYLOCAINE-MPF 1% VIAL 30 ML INFIL (23:50)
[2025-11-02] MEDS: CYTOTEC 800 MCG SL (00:03)
[2025-11-02] MEDS: MOTRIN 600 MG PO ×4 (01:01→21:51)
[2025-11-02 06:18] LABS: Hematocrit 32.7 % (37.0-47.0); Hemoglobin 11.7 g/dL (12.0-16.0)
[2025-11-02] MEDS: TYLENOL 650 MG PO ×3 (07:58→21:51)
[2025-11-02] MEDS: COLACE 100 MG PO ×2 (07:59→20:33)
[2025-11-02] MEDS: FEOSOL 162.5 MG PO (07:59)
[2025-11-03] MEDS: MOTRIN 600 MG PO (04:34)
[2025-11-03] MEDS: TYLENOL 650 MG PO (04:35)
[2025-11-03] MEDS: FEOSOL 162.5 MG PO (08:39)
[2025-11-03] MEDS: COLACE 100 MG PO (08:44)
[2025-11-03 16:10] LABS: Syphilis/T. pallidum Ab Reflex Negative (Negative)
== END 2025-11-03 11:38 | disposition home or self-care (01) | DRG 807 ==
LOC: LDRP 20:04
PROVIDERS: Obstetrics & Gynecology; ADMITTING PHYSICIAN Obstetrics & Gynecology
PROC: 3E033VJ Introduction of Other Hormone into Peripheral Vein, Percutaneous Approach (ICD-10-PCS; 2025-10-31)
PROC: 10907ZC Drainage of Amniotic Fluid, Therapeutic from Products of Conception, Via Natural or Artificial Opening (ICD-10-PCS; 2025-11-01)
PROC: 10E0XZZ Delivery of Products of Conception, External Approach (ICD-10-PCS; 2025-11-02)
PROC: 0KQM0ZZ Repair Perineum Muscle, Open Approach (ICD-10-PCS; 2025-11-02)
DX: O36.8130 Decreased fetal movements, third trimester, not applicable or unspecified (principal); Z37.0 Single live birth; O14.14 Severe pre-eclampsia complicating childbirth; Z3A.37 37 weeks gestation of pregnancy; O70.1 Second degree perineal laceration during delivery
CPT/HCPCS: 36415; 80053; 82570; 84156; 85014; 85018; 85025; 86780; 86850; 86900; 86901; 88307